=== PATIENT | male | born 1950 | race Caucasian/White ===

== ENCOUNTER 2017-03-03 11:12 | Emergency (ER) | payer MEDICARE, OTHER ==
[2015-11-27 12:47] VITALS: BMI 34.7
[~2017-03-03 11:12] MED LIST: ECOTRIN325 MG PO; FENOGLIDE40 MG PO; GLIPIZIDE10 MG PO; GLUCOPHAGE1000 MG PO; LIPITOR10 MG PO; LISINOPRIL10 MG PO; NITROSTAT0.4 MG SL; ONGLYZA5 MG PO; PLAVIX75 MG PO; ZOFRAN ODT4 MG/UDTAB PO
== END 2017-03-03 16:08 | disposition home or self-care (01) ==
LOC: D.ER 11:12
DX: G89.18 Other acute postprocedural pain (principal); Z98.890 Other specified postprocedural states; I10 Essential (primary) hypertension; E11.9 Type 2 diabetes mellitus without complications

== ENCOUNTER → 2018-02-25 14:45 | Outpatient (CLI) | payer MEDICARE, OTHER ==
[2015-11-27 12:47] VITALS: BMI 34.7
== END | disposition home or self-care (01) ==
LOC: D.MRI 14:45
DX: M54.5 Low back pain (principal)

== ENCOUNTER 2019-06-01 20:00 | Inpatient (IN) | payer MEDICARE, OTHER ==
[~2019-06-01] VITALS: Ht 152.4 cm; Wt 104.5 kg
--- NOTE | ~2019-06-01 | HEMODYNAMI ---
PATIENT:LEONARDO GILLILAND MEDICAL RECORD: [id number] : 46 LOCATION[id number] ADMISSION DATE: 06/01/19 Generatedon:06/02/201911:09 Patient name: LEONARDO GILLILAND Patient #: [id number] SSN: [id number] : 1950 Date of study: 06/02/2019 Page: Of Hemodynamic Procedure Report Patient Data Patient Demographics Procedure consent was obtained First Name: LEONARDO Gender: Male Last Name: DARSHANA : 1950 Middle Initial: HELIO Age: 68 year(s) Patient #: [id number] Race: SSN: [id number] Additional ID: [id number] Contact details Address: [address] [place] [address] State: [place] City: [place] Zip code: [address] Past Medical History Allergies Allergen Reaction Date Comments Reported Penicillins 08/01/2014 Penicillins 11/27/2015 Other allergy 06/02/2019 PENICILLIN G Admission Admission Data Admission Date: 06/01/2019 Admission Time: 21:19 Arrival Date: 06/02/2019 Arrival Time: 0:00 Admit Source: Emergency Insurance Payor: Medicare department [facility] #: [id number] Room #: D.2114 Height (in.): 59.84 BSA: 1.98 (m2) Height (cm.): 152 BMI: 45.45 (kg/m2) Weight (lbs.): 231.49 Weight (kg.): 105 Lab Results Lab Result Date: 06/02/2019 Lab Result Time: 0:00 Biochemistry Name Units Result Min Max BUN mg/dl 31 --(----)-* 7 18 CK-MB ng/ml 3.9 --(----)*- 0 3.6 Creatinine mg/dl 1.5 --(----)-* 0.6 1.3 eGFR ml/min 49 *-(----)-- 90 120 NONAFRICAN Troponin l ng/ml 0.017 --(-*--)-- 0 0.06 CBC Name Units Result Min Max Hematocrit % 42.3 --(*---)-- 42 54 Hemoglobin g/dl 13.4 -*(----)-- 13.5 17.5 Procedure Procedure Types Cath Procedure Diagnostic Procedure C [facility] w/Coronaries Sedation Charges Moderate Sedation up to 15 minutes Procedure Description Procedure Date Procedure Date: 06/02/2019 Procedure Start Time: 10:57 Procedure End Time: 11:05 Procedure Staff Name Function Clifford Palm MD Performing Physician Judy Mcintyre RN Nurse Sandra Friedman RT Scrub Yuki Allen RT Monitor Procedure Data Cath Procedure Fluoroscopy Diagnostic fluoroscopy Total fluoroscopy Time: 1.2 time: 1.2 min min Diagnostic fluoroscopy Total fluoroscopy dose: 534 dose: 534 mGy mGy Contrast Material Contrast Material Type Amount (ml) Isovue 300 59 Entry Location Entry Primary Successful Side Size Upsize Upsize Entry Closure Succes sful Closure Location (Fr) 1 (Fr) 2 (Fr) Remarks Device Remarks Femoral Right 5 Fr Exoseal artery Estimated blood loss: 5 ml Diagnostic catheters Device Type Used For End Catheter Placement MULTIPACK JL 4.0 5Fr Left Coronary catheter Angiography MULTIPACK 3DRC 5Fr Right Coronary catheter Angiography MULTIPACK Pigtail 5 Fr LV Angiography catheter Procedure Complications No complications Procedure Medications Medication Administration Route Dosage 0.9% NaCl I.V. 100 ml/hr Oxygen etCO2 Nasal cannula 2 l/min Lidocaine 2% added to field 20 Heparin Flush Bag added to field 2 bags (1000units/500ml NS) Versed I.V. 2 mg Fentanyl I.V. 50 mcg Hemodynamics Rest BSA: 1.98 (m2) HGB: 13.4 (g/dl) O2 Consumption: Estimated: 233.38 (ml/min) O2 Co nsumption indexed: Estimated:117.87 (ml/min/m) Heart Rate: 76 (bpm) Pressure Samples Time Site Value (mmHg) Purpose Heart Use Rate(bpm) 11:02 LV 141/11,16 Snapshot 62 Gradients Valve Time Site Site Mean SEP/DFP Peak To Heart Use 1 2 (mmHg) (sec/min) Peak Rate (mmHg) (bpm) Aortic 11:02 LV AO 69 Snapshots Pre Cath Intra NCS Post Cath Vital Signs Time Heart Resp SPO2 etCO2 NIBP (mmHg) Rhythm Pain Sedation Rate (ipm) (%) (mmHg) Status Level (bpm) 10:44:15 72 13 98 36.5 163/89(139) NSR 0 (11) 10(A) , No pain 10:48:47 78 14 96 27.6 162/84(120) NSR 0 (11) 10(A) , No pain 10:53:12 78 13 98 26.1 155/86(129) NSR 0 (11) 10(A) , No pain 10:57:32 76 13 98 36.5 147/84(109) NSR 0 (11) 10(A) , No pain 11:01:58 81 13 96 35 149/79(116) NSR 0 (11) 10(A) , No pain Medications Time Medication Route Dose Verified Delivered Reason Notes Eff ectiveness by by 10:44:08 0.9% NaCl I.V. 100 Clifford Rojasa used for ml/hr [place] Francisco Javier procedure MD GAYTAN 10:44:15 Oxygen etCO2 2 Clifford Colungayla used for Nasal l/min [facility] procedure cannula MD GAYTAN 10:44:19 Lidocaine 2% added 20ml Clifford Horton for local to vial [facility] anesthetic field MD JOHNSON 10:44:24 Heparin Flush added 2 Clifford Clifford used for Bag to bags [facility] procedure (1000units/500ml field MD JOHNSON NS) 10:54:12 Versed I.V. 2 mg Clifford Rojasa for [facility] Mcintyre sedation MD GAYTAN 10:54:22 Fentanyl I.V. 50 Clifford Rojasa for mcg [place] Francisco Javier sedation MD GAYTANphysical biochemist Log Time Note 10:28:10 Informed consent obtained and on chart 10:29:06 Procedure Status Urgent Heart Cath (IP). 10:29:09 Judy Mcintyre RN sent for patient. Start room use. 10:29:12 Time tracking: Regular hours (M-F 7:00 - 5:00) 10:29:20 Plan of Care:Hemodynamics will remain stable., Cardiac rhythm will remain stable., Comfort level will be maintained., Respiratory function will remain adequate., Patient/ family verbilizes understanding of procedure., Procedure tolerated without complication., Recovers from procedure without complications.. 10:30:28 Lab Result : CK-MB 3.9 ng/ml 10:: Lab Result : Troponin l 0.017 ng/ml 10:: Lab Result : BUN 31 mg/dl :: Lab Result : Creatinine 1.5 mg/dl :: Lab Result : eGFR NONAFRICAN 49 ml/min 10:: Lab Result : Hematocrit 42.3 % 10:: Lab Result : Hemoglobin 13.4 g/dl 10:30:36 Arrival Date: 06/02/2019 12:00:00 AM 10:30:46 Patient Height : 59.84 inches 10:30:50 Patient Weight : 231.49 lbs 10::44 Lab results completed and on chart. 10:32:07 Patient allergic to Other allergyPENICILLIN G 10:33:06 Patient diabetic? Yes. 10:36:57 Risk of Mortality: 3.7 10:37:01 Risk of blood transfusion: 2.3 10:37:06 Risk of MICHAEL: 2.4 10:37:11 Stress Test: no; N/A ? 10:37:25 Patient received from Med II to CCL 1 Alert and oriented. Tansferred to table in Supine position. 10:37:27 Warm blankets applied, and etienne hugger turned on for patient comfort. 10:37:28 Correct patient and procedure confirmed by team. 10:37:29 ECG and BP/O2 sat monitors applied to patient. 10:42:47 Vital chart was started 10:42:48 Baseline sample Acquired. 10:42:51 Rhythm: sinus rhythm 10:44:08 0.9% NaCl 100 ml/hr I.V. was administered by Judy Mcintyre RN; used for procedure; Verbal order read back and verified. 10:44:15 Oxygen 2 l/min etCO2 Nasal cannula was administered by Judy Mcintyre RN; used for procedure; Verbal order read back and verified. 10:44:19 Lidocaine 2% 20ml vial added to field was administered by Clifford Palm MD; for local anesthetic; Verbal order read back and verified. 10:44:24 Heparin Flush Bag (1000units/500ml NS) 2 bags added to field was administered by Clifford Palm MD; used for procedure; Verbal order read back and verified. 10:50:16 Admit Source: Emergency department 10:50:21 Insurance Payor : Medicare 10:51:34 Full Disclosure recording started 10:51:37 H&P Date Dictated: 06/02/2019 New H&P dictated by physician.. 10:51:39 Pre-procedure instructions explained to patient. 10:51:39 Pre-op teaching completed and patient verbalized understanding. 10:51:41 Family unavailable. 10:51:43 Patient NPO since Midnight. 10:51:45 Is the patient allergic to Iodine/contrast media? No. 10:51:46 Was the patient premedicated? Yes 10:51:50 Is patient on blood thinner?Yes 10:52:48 ACC The patient was administered the following blood thiners within the last 24 hours: ACCLovenox 10:52:52 If diabetic: On Metformin? Yes 10:52:56 If on Metformin: Last Dose? 06/01/2019 10:52:59 Previous problem with sedation/anesthesia? No ? 10:53:01 Snore? Yes 10:53:02 Sleep apnea? Yes 10:53:05 Deviated septum? No 10:53:06 Opens mouth fully? Yes 10:53:07 Sticks out tongue? Yes 10:53:11 Airway obstruction? No ? 10:53:13 Dentures? No ? 10:53:16 Pre procedure: right dorsailis pedis pulse 2+ Normal; easily identifiable; not easily obliterated 10:53:19 Pre procedure: left dorsailis pedis pulse 2+ Normal; easily identifiable; not easily obliterated 10:53:25 Patient pain scale 0/10 ?. 10:53:31 IV patent on arrival in left forearm with 0.9% NaCl at [facility]. 10:53:37 Right groin area was prepped with chlora-prep and draped in sterile fashion 10:53:38 Alarms reviewed by R. N. 10:53:39 Sharps counted by scrub and verified by R.N. 10:53:40 Physician arrived 10:53:41 --------ALL STOP TIME OUT------ 10:53:42 Final Timeout: patient, procedure, and site verified with staff and physician. All members of the team are in agreement. 10:53:43 Right groin site verified by team. 10:53:48 Fire Safety Assessment: A--An alcohol-based skin anteseptic being used preoperatively., C--Open oxygen or nitrous oxide is being used., D--An ESU, laser, or fiber-optic light is being used. 10:53:53 Physical assessment completed. ASA score P 2 - A patient with mild systemic disease as per Clifford Palm MD. 10:54:05 3a) 45-59 Moderately reduced kidney function. 10:54:12 Versed 2 mg I.V. was administered by Judy Mcintyre RN; for sedation; Verbal order read back and verified. 10:54:22 Fentanyl 50 mcg I.V. was administered by Judy Mcintyre RN; for sedation; Verbal order read back and verified. 10:54:23 Maximum allowable contrast dose (3.7 X eGFR X 0.75)135 ml. 10:54:28 Sedation plan: IV Moderate Sedation Medication:Versed, Fentanyl 10:54:35 Use device set Femoral Dx 10:54:36 ACIST Syringe (83569) opened to sterile field. 10:54:36 Bag Decanter (2002S) opened to sterile field. 10:54:36 Medline Cath Pack ([id number]) opened to sterile field. 10:54:38 ACIST Hand Control (02730) opened to sterile field. 10:54:38 ACIST Manifold (46632) opened to sterile field. 10:54:38 DIAGNOSTIC Multipack 5Fr catheter set (HV5617) opened to sterile field. 10:54:39 Tegaderm 4 x 4 (1626W) opened to sterile field. 10:54:40 SHEATH 5FR Wheelwright (RDE720) opened to sterile field. 10:54:41 EMERALD Guide Wire (450-356) opened to sterile field. 10:57:03 Procedure started. 10:57:06 Local anesthetic to right femoral artery with Lidocaine 2% by Clifford Palm MD.INITIAL ACCESS ONLY 10:57:14 A 5 Fr sheath was inserted into the Right Femoral artery 10:57:32 A MULTIPACK JL 4.0 5Fr catheter was advanced over the wire and used for Left Coronary Angiography. 10:58:26 LCA angiography performed. 10:58:30 Injector settings: Ml/sec: 3, Volume: 6, 10:59:42 Catheter removed. 10:59:47 A MULTIPACK 3DRC 5Fr catheter was advanced over the wire and used for Right Coronary Angiography. 11:00:44 RCA angiography performed. 11:00:48 Injector settings: Ml/sec: 3, Volume: 6, 11:01:04 Catheter removed. 11:01:10 A MULTIPACK Pigtail 5 Fr catheter was advanced over the wire and used for LV Angiography. 11:02:17 LV hemodynamics recorded. 11:02:18 LV gram done using MIRANDA 11:02:24 Injector settings: Ml/sec: 5, Volume: 15, 11:02:33 EF : 55 % 11:02:40 Catheter removed. 11:02:41 EXOSEAL 5Fr (EX500) opened to sterile field. 11:03:00 Sheath removed intact; hemostasis achieved with Exoseal to the Right Femoral artery. 11:03:03 Procedure ended.(Physican Out) 11:03:40 Fluoroscopy time 01.20 minutes. 11:03:44 Fluoroscopy dose: 534 mGy 11:03:44 Flurop Dose total: 534 11:03:50 Dose Area Product 07892 mGy/cm. 11:04:02 Contrast amount:Isovue 300 59ml. 11:04:04 Maximum allowable dose exceeded? No. 11:04:06 Sharps counted by scrub and verified by R.N. 11:04:07 Insertion/operative site no bleeding no hematoma. 11:04:10 Post-op/insertion site Right Femoral artery dressed using a 4 x 4 and Tegaderm. 11:04:11 Post Procedure Pulses reassessed and unchanged 11:04:14 Post procedure rhythm: unchanged. 11:04:18 Estimated blood loss: 5 ml 11:04:19 Post procedure instruction explained to patient.Patient verbalizes understanding. 11:04:20 Patient needs reinforcement of post procedure teaching. 11:04:57 Procedure type changed to Cath procedure, Diagnostic procedure, LHC, [facility] w/Coronaries, Sedation Charges, Moderate Sedation up to 15 minutes 11:05:00 Procedure and supply charges have been captured, reviewed, submitted and are correct. 11:05:05 Procedure Complication : No complications 11:05:08 Vital chart was stopped 11:05:10 [facility] Findings: mild to moderate CAD (<70%) 11:05:11 Operative report dictated upon procedure completion. 11:05:13 See physician's report for complete and final results. 11:05:21 Report given to Med II. 11:05:31 Patient transfered to Med II with Stretcher. 11:05:34 Procedure ended. 11:05:34 Full Disclosure recording stopped 11:05:38 End room use (Document Last) Device Usage Item Name Manufacture Quantity Catalog Hospital Part Current Minimal L ot# / Number Charge Number Stock Stock Serial# Code ACIST Acist 1 50622 [id number] 631610 642380 20 Syringe Medical (71702) Systems Inc Bag Microtek 1 640987 00472 742165 5 Decanter Medical Inc. () Medline Medline 1 [id number] 629050 59657 089695 5 Cath Pack ([id number]) ACIST Hand Acist 1 17696 353413 452790 068427 5 Control Medical (36333) Systems Inc ACIST Acist 1 75040 581712 119185 677857 5 Manifold Medical (27746) Systems Inc DIAGNOSTIC Cardinal 1 [id number] 873191 55265 106307 30 Multipack Health 5Fr catheter set (UQ9770) Tegaderm 4 3M 1 1626W 035845 805084 252509 5 x 4 (1626W) SHEATH 5FR Terumo 1 SAY234 824506 388979 353715 5 Wheelwright (GGX264) EMERALD Cardinal 1 502-455 857931 466476 346861 5 Guide Wire [facility] (502-455) MULTIPACK Cardinal 1 524817 5 JL 4.0 5Fr Health catheter MULTIPACK Cardinal 1 946732 5 3DRC 5Fr Health catheter MULTIPACK Cardinal 1 833260 5 Pigtail 5 Health Fr catheter EXOSEAL 5Fr Cardinal 1 EX500 652503 550597 658746 10 (EX500) Health Signature Audit [place] Stage Time Signature Unsigned Intra-Procedure 06/02/2019 Yuki Allen 11:08:21 AM RT(R) Intra-Procedure 06/02/2019 Judy Mcintyre 11:08:48 AM RN Intra-Procedure 06/02/2019 Clifford Peguero 11:09:[address] [facility] [address] [place] [address]
[2019-06-01] MEDS ORDERED: GLUCOPHAGE500 MG PO (20:07)
[2019-06-01] MEDS ORDERED: PRINIVIL20 MG PO (20:07)
[2019-06-01] MEDS ORDERED: LITE COAT ASPI325 MG PO (20:08)
[2019-06-01 20:29] LABS: BASOPHILS 0.4 % (0-2); EOSINOPHILS 4.2 % (0-7); HEMATOCRIT 46.2 % (42.0-54.0); HEMOGLOBIN 14.9 g/dL (13.5-17.5); IMMATURE GRANULOCYTES 0.4 % (0-5); LYMPHOCYTES 23.8 % (15-50); MCH 28.4 pg (26.0-34.0); MCHC 32.3 g/dL (31.0-37.0); MCV 88.2 fL (80.0-100.0); MONOCYTES 10.6 % (2-11); NEUTROPHILS 60.6 % (40-80); RBC 5.24 10x6/uL (4.20-6.10); RDW 13.8 % (11.5-14.5); WBC 11.3 10x3/uL (4.8-10.8)
[2019-06-01 20:40] LABS: APTT 28.7 SECONDS (22.8-39.4); INR 0.99 (0.85-1.17); PROTIME 13.1 SECONDS (11.6-15.0)
[2019-06-01 20:41] LABS: D-DIMER-QUANTITATIVE < 0.27 ug/mLFEU (0.20-0.54)
[2019-06-01 20:42] LABS: CALC OSMOLALITY 279 mosm/kg (275-300); CALCIUM 9.6 mg/dL (8.5-10.1); CARBON DIOXIDE 20.8 mmol/L (21.0-32.0); CHLORIDE - SERUM 101 mmol/L (98-107); CREATININE - SERUM 1.8 mg/dL (0.6-1.3); POTASSIUM - SERUM 4.6 mmol/L (3.5-5.1); SODIUM 134 mmol/L (136-145); UREA NITROGEN 35 mg/dL (7-18); eGFR NON AFRICAN AMERICAN 40 mL/min (90-120)
[2019-06-01 20:44] LABS: GLUCOSE 173 mg/dL (74-106)
[2019-06-01 20:52] LABS: PLATELET COUNT 297 10x3/uL (130-400)
[2019-06-01 20:56] LABS: ALBUMIN 3.8 g/dL (3.4-5.0); ALKALINE PHOSPHATASE 66 U/L (30-120); ALT (SGPT) 29 U/L (10-68); BILIRUBIN - TOTAL 0.32 mg/dL (0.2-1.3); CKMB 5.2 U/L (0.0-3.6); CREATINE KINASE 296 UL (21-232); MAGNESIUM - SERUM 1.7 mg/dL (1.8-2.4); PRO BNP 23 pg/mL (0-125); PROTEIN - SERUM 7.8 g/dL (6.4-8.2)
[2019-06-01 20:57] LABS: TROPONIN-I < 0.017 ng/mL (0.000-0.060)
[2019-06-01 21:00] VITALS: BP 138/79
[2019-06-02] VITALS: BP 127/66
[2019-06-02 00:01] LABS: CREATINE KINASE 289 UL (21-232); TROPONIN-I < 0.017 ng/mL (0.000-0.060)
[2019-06-02 00:34] VITALS: Ht 152.4 cm; Wt 104.5 kg
[2019-06-02 04:00] VITALS: BP 134/70
[2019-06-02 05:56] LABS: BASOPHILS 0.6 % (0-2); EOSINOPHILS 5.5 % (0-7); HEMATOCRIT 42.3 % (42.0-54.0); HEMOGLOBIN 13.4 g/dL (13.5-17.5); IMMATURE GRANULOCYTES 0.4 % (0-5); LYMPHOCYTES 25.6 % (15-50); MCH 27.9 pg (26.0-34.0); MCHC 31.7 g/dL (31.0-37.0); MCV 88.1 fL (80.0-100.0); MEAN PLATELET VOLUME 9.6 fL (7.4-10.4); NEUTROPHILS 57.9 % (40-80); PLATELET COUNT 261 10x3/uL (130-400); RDW 13.7 % (11.5-14.5); WBC 10.3 10x3/uL (4.8-10.8)
[2019-06-02 06:52] LABS: ALBUMIN 3.2 g/dL (3.4-5.0); ALKALINE PHOSPHATASE 56 U/L (30-120); ALT (SGPT) 26 U/L (10-68); BILIRUBIN - TOTAL 0.38 mg/dL (0.2-1.3); CALC OSMOLALITY 283 mosm/kg (275-300); CALCIUM 8.5 mg/dL (8.5-10.1); CARBON DIOXIDE 23.9 mmol/L (21.0-32.0); CHLORIDE - SERUM 105 mmol/L (98-107); CKMB 3.9 U/L (0.0-3.6); CREATINE KINASE 256 UL (21-232); CREATININE - SERUM 1.5 mg/dL (0.6-1.3); GLUCOSE 151 mg/dL (74-106); MAGNESIUM - SERUM 1.7 mg/dL (1.8-2.4); PHOSPHOROUS 3.4 mg/dL (2.5-4.9); POTASSIUM - SERUM 4.8 mmol/L (3.5-5.1); PROTEIN - SERUM 6.4 g/dL (6.4-8.2); SODIUM 137 mmol/L (136-145); TROPONIN-I < 0.017 ng/mL (0.000-0.060); UREA NITROGEN 31 mg/dL (7-18); eGFR NON AFRICAN AMERICAN 49 mL/min (90-120)
[2019-06-02 07:46] LABS: BILIRUBIN NEGATIVE (NEGATIVE); GLUCOSE NEGATIVE (NEGATIVE); KETONE NEGATIVE (NEGATIVE); NITRITE NEGATIVE (NEGATIVE); SPECIFIC GRAVITY 1.015 (1.005-1.020); UROBILINOGEN NORMAL (NORMAL)
[2019-06-02 09:02] LABS: CHOL - HDL RATIO 5.3 ratio (2.3-4.9); LDL-HDL RATIO 2.3 ratio (1.5-3.5)
[2019-06-02 09:11] VITALS: BP 124/63
--- NOTE | 2019-06-02 10:28 | NUR ---
SPUTUM SPECIMEN COLLECTED AND TAKEN TO LAB. WILL MONITOR.
--- NOTE | 2019-06-02 10:36 | NUR ---
CONSENTS SIGNED. PRE-OPS GIVEN. TO EMERGENCY SPECIALIST BY BED.
--- NOTE | 2019-06-02 11:30 | NUR ---
BACK FROM INNERSOLE FITTER. VS WNL. RIGHT GROIN STABLE WITHOUT BLEEDING OR HEMATOMA NOTED. WILL MONITOR.
--- NOTE | 2019-06-02 12:45 | NUR ---
ECHO DONE AT BS.
--- NOTE | 2019-06-02 13:19 | NUR ---
BED REST UP. GROIN STABLE.
--- NOTE | 2019-06-02 19:24 | NUR ---
RECEIVED BEDSIDE REPORT. PATIENT ALERT AND ORIENTED, RESTING COMFORTABLY IN BED. RESPIRATIONS ARE EVEN AND UNLABORED. NO S/S OF DISTRESS. NO C/O PAIN. CALL LIGHT WITHIN REACH. WILL CPOC.
[2019-06-02 20:00] VITALS: BP 149/67
[2019-06-02 23:44] VITALS: BP 164/75
[2019-06-03 04:00] VITALS: BP 134/73
[2019-06-03 06:03] LABS: BASOPHILS 0.4 % (0-2); EOSINOPHILS 6.4 % (0-7); HEMATOCRIT 43.3 % (42.0-54.0); HEMOGLOBIN 13.8 g/dL (13.5-17.5); IMMATURE GRANULOCYTES 0.2 % (0-5); LYMPHOCYTES 22.8 % (15-50); MCH 28.2 pg (26.0-34.0); MCHC 31.9 g/dL (31.0-37.0); MCV 88.5 fL (80.0-100.0); MEAN PLATELET VOLUME 9.9 fL (7.4-10.4); MONOCYTES 10.8 % (2-11); NEUTROPHILS 59.4 % (40-80); PLATELET COUNT 259 10x3/uL (130-400); RBC 4.89 10x6/uL (4.20-6.10); RDW 13.7 % (11.5-14.5); WBC 9.7 10x3/uL (4.8-10.8)
[2019-06-03 06:27] LABS: CALCIUM 8.6 mg/dL (8.5-10.1); CARBON DIOXIDE 22.8 mmol/L (21.0-32.0); CREATININE - SERUM 1.3 mg/dL (0.6-1.3); MAGNESIUM - SERUM 1.9 mg/dL (1.8-2.4); POTASSIUM - SERUM 4.8 mmol/L (3.5-5.1)
[2019-06-03 08:10] VITALS: BP 145/73
--- NOTE | 2019-06-03 10:53 | NUR ---
IV AND TELEMETRY DCD. DC PLANS GIVEN. UNDERSTANDING VOICED. ESCORTED TO CAR.
--- NOTE | 2019-06-03 13:35 | OP ---
PATIENT NAME: LEONARDO GILLILAND MEDICAL RECORD: [id number] :46 LOCATION:D.M2 D.2114 ADMISSION DATE:06/01/19 SURGEON: MARI CEJA MD DATE OF OPERATION: 06/02/2019 PROCEDURES: Left heart catheterization, selective coronary angiography, right femoral artery approach. CATHETERS: A 5-Upper Sorbian sheath, 5/4 left and right Codie, 5/4 pig. The procedure was well tolerated. The patient returned to the couch, sheath removed. ExoSeal device placed. FINDINGS: Left ventriculography in 30-degree MIRANDA view: Normal wall motion, normal systolic function. CORONARY ANATOMY: LEFT MAIN: Left main is free of disease. LAD: Free of disease. Area of previous stenting is widely patent. No progression of [place] disease. CIRCUMFLEX: Free of disease. RIGHT CORONARY ARTERY: Dominant artery, gives rise to PDA, free of disease. IMPRESSION: No evidence of restenosis. No progression of [place] disease. TRANSINT:[id number] Voice Confirmation ID: [id number] DOCUMENT ID: [id number] MARI CEJA MD at 1335 CC: [id number] DICTATION DATE: 06/02/19 1111 UX VISUAL DESIGNER: 06/02/19 1633 DIS IN 06/03/19 [facility] [address] [facility] [place] [address]
--- NOTE | 2019-06-03 13:35 | CN ---
PATIENT NAME:LEONARDO GILLILAND MEDICAL RECORD: [id number] : 46 LOCATION:D. D.2114 ADMIT DATE: 06/01/19 ACCOUNT: [id number] CONSULTING PHYSICIAN: MARI CEJA MD REFERRING PHYSICIAN: SAIMA BARILLAS MD DATE OF CONSULTATION: 06/02/2019 HISTORY OF PRESENT ILLNESS: A 68-year-old gentleman with no known history of coronary artery disease, has a history of hypertension, hyperlipidemia, diabetes mellitus, about a week history of chest tightness, pressure with exertion, progressing to rest symptomology. On day of admission, he was noted to be somewhat hypertensive. Pain has improved with improving in blood pressure. EKG is abnormal with nonspecific ST-T changes inferolaterally. We are asked to see him concerning his cardiovascular status. PAST MEDICAL HISTORY: Includes; 1. History of hypertension. 2. Dyslipidemia. 3. Diabetes mellitus. ALLERGIES: PENICILLIN. MEDICATIONS: Include Glucotrol 10 mg p.o. b.i.d., metformin 500 b.i.d., aspirin 325 every day, lisinopril 20 b.i.d., fenofibrate at bedtime. SOCIAL HISTORY: Nonsmoker, nondrinker. Easily takes care of all his ADLs. No set exercise program. REVIEW OF SYSTEMS: The patient reports easy bruising but reports no swollen glands. The patient reports no fever, no night sweats, no significant weight gain, no significant weight loss. No significant exercise tolerance. The patient reports no dry eyes, no irritation, no vision change. Patient reports no difficulty hearing and no ear pain. Patient reports no frequent nose bleeds or nose and sinus problems. Patient reports on arm pain on exertion. No shortness of breath while lying down. No history of heart murmur. Patient reports no cough, no wheezing or coughing up blood. Patient reports no abdominal pain, no vomiting. Normal appetite. No diarrhea and not vomiting blood. No nausea and no constipation. Patient reports no incontinence. No difficulty urinating. No hematuria. No increased frequency. Patient reports no muscle aches. No weakness, no arthralgias, no back pain. No swelling of the extremities. Patient reports no abnormal mole, no jaundice, no rashes. Reports no loss of consciousness. No weakness and no numbness. No seizures, dizziness, or headaches. The patient reports no depression, no sleep disturbance, feeling safe in a relationship and no alcohol abuse. Patient reports on fatigue. Reports no runny nose or sinus pressure. No itching, no hives, and no frequent sneezing. PHYSICAL EXAMINATION: GENERAL: Pleasant gentleman in no acute distress, appears stated age. VITAL SIGNS: Blood pressure 134/70, pulse 73 and regular. HEENT: Normocephalic, atraumatic. NECK: No bruits noted. HEART: Regular, S4 gallop is noted. LUNGS: Good air excursion. ABDOMEN: Soft, nontender. CONSULT REPORT [id number] DARSHANALEONARDO EXTREMITIES: Pulses 2+ with no edema. NEUROLOGIC: He is grossly intact. DIAGNOSTIC DATA: EKG shows nonspecific ST-T changes described above, also poor R-wave progression. IMPRESSION: Acute coronary artery syndrome, multiple risk factors. PLAN: For angiography, intervention based on the above. TRANSINT:[id number] Voice Confirmation ID: [id number] DOCUMENT ID: [id number] MARI CEJA MD at 1335 CC: [id number] DICTATION DATE: 06/02/19 0833 ENVIRONMENTAL SCIENCE PROGRAM DIRECTOR: 06/02/19 0854 DIS IN 06/03/19 [facility] [address] [place] [address]
--- NOTE | 2019-06-03 16:48 | MORECARE ---
CASE MANAGEMENT DISCHARGE SUMMARY PATIENT: LEONARDO GILLILAND UNIT: [id number] ADM DATE: 06/01/19 AGE: 68 : [birth year] SEX: M ROOM/BED: D.2114 AUTHOR: URIAH ULLOA PHYSICIAN: REFERRING PHYSICIAN: SAIMA BARILLAS MD DATE OF SERVICE: 06/03/19 Discharge Plan Patient Name: LEONARDO GILLILAND Facility: [facility]:[place] : 1950 Planned Disposition: Anticipated Discharge Date: Discharge Date: 06/03/2019 Expected LOS: 0 Initial Reviewer: [id number] Initial Review Date: 06/03/2019 Generated: 06/03/19 5:48 pm Patient Name: LEONARDO GILLILAND Page [id number] at 1648 All edits/amendments must be made on the electronic document DICTATION DATE: 06/03/191647 LEAD REFINERY SUPERVISOR: [email or web address] 06/03/191647 RPT#: [id number] DC DATE:06/03/19 STATUS: DIS IN [facility] [address] [place] [address] END OF REPORT
== END 2019-06-03 10:55 | disposition home or self-care (01) | DRG 287 ==
LOC: D.ER 20:00 → D.M2 21:19
PROVIDERS: Family Medicine; Internal Medicine Interventional Cardiology; ADMIT Internal Medicine Nephrology; ATTEND Internal Medicine Nephrology
PROC: B2151ZZ Fluoroscopy of Left Heart using Low Osmolar Contrast (ICD-10-PCS; 2019-06-02)
PROC: 4A023N7 Measurement of Cardiac Sampling and Pressure, Left Heart, Percutaneous Approach (ICD-10-PCS; 2019-06-02)
PROC: B2111ZZ Fluoroscopy of Multiple Coronary Arteries using Low Osmolar Contrast (ICD-10-PCS; principal; 2019-06-02 10:30)
DX: R07.9 Chest pain, unspecified (principal); N17.9 Acute kidney failure, unspecified; E87.1 Hypo-osmolality and hyponatremia; E11.69 Type 2 diabetes mellitus with other specified complication; I10 Essential (primary) hypertension; E11.65 Type 2 diabetes mellitus with hyperglycemia; I25.10 Atherosclerotic heart disease of native coronary artery without angina pectoris; G89.29 Other chronic pain; M54.9 Dorsalgia, unspecified

== ENCOUNTER 2019-08-03 18:20 | Emergency (ER) | payer OTHER ==
[~2019-08-03] VITALS: Ht 170.2 cm; Wt 106.8 kg
[~2019-08-03 18:20] MED LIST changes: +GLUCOPHAGE500 MG PO; +LITE COAT ASPI325 MG PO; +PRINIVIL20 MG PO
[2019-08-03 18:27] VITALS: BP 194/83; Ht 170.2 cm; Wt 106.8 kg
== END 2019-08-03 19:43 | disposition home or self-care (01) ==
LOC: D.ER 18:20
DX: H59.89 Other postprocedural complications and disorders of eye and adnexa, not elsewhere classified (principal); I10 Essential (primary) hypertension; E11.9 Type 2 diabetes mellitus without complications; Z79.84 Long term (current) use of oral hypoglycemic drugs